=== PATIENT | female | born 1970 | race Caucasian/White ===

== ENCOUNTER 2021-07-04 22:53 | Emergency (ER) | payer MEDICARE, MEDICAID ==
[2021-07-05] MEDS ORDERED: diphenhydrAMINE 50 MG/ML SDV IVPUSH ONE (00:29)
[2021-07-05] MEDS ORDERED: Ketorolac 15 MG/ML SDV IVPUSH ONE (00:29)
[2021-07-05] MEDS ORDERED: Prochlorperazine 10 MG/2 ML SDV IVPUSH ONE (00:29)
[2021-07-05] MEDS ORDERED: Lactated Ringers 1,000 ML IV ONE (03:30)
[2021-07-05 03:55] LABS: ACETAMINOPHEN <2.0 ug/mL; BLOOD UREA NITROGEN,BUN 13 mg/dL (7.0-18.0); CARBON DIOXIDE,CO2 25.2 mmol/L (21.0-32.0); CHLORIDE,CL 106 mmol/L (98-107); GLUCOSE RANDOM 99 mg/dL (74-106); POTASSIUM,K 3.7 mmol/L (3.5-5.1); SODIUM,NA 142 mmol/L (136-145)
--- NOTE | 2021-07-05 04:59 | EDM.PDOC ---
ED HPI GENERAL MEDICAL PROBLEM - General Chief Complaint: General Stated Complaint: HEADACHE, NAUSEA, DIZZINESS Time Seen by Provider: 07/04/21 23:10 - History of Present Illness INITIAL COMMENTS - FREE TEXT/NARRATIVE: CHIEF COMPLAINT(S): Headache HISTORY OF PRESENT ILLNESS: This is a 36-year-old woman without any significant past medical history who comes to the emergency department with a chief complaint of headache. The patient states that she is currently in a hotel where they are doing renovations. She states that she is experiencing a headache, dizziness and some nausea because of the fumes and feels like she is smelling something different. She denies any blurry vision, diplopia, numbness, tingling, weakness. She denies any vomiting. She denies any trouble walking speaking or swallowing. She states that she does not know if anybody else is having similar symptoms. She asks if a person is sitting next to her and smoking drugs if she could be exposed. She denies any illicit substance use. She states that she does have a history of migraines and this does appear to feel similar. REVIEW OF SYSTEMS: Constitutional: Positive for dizziness. Denies fever, chills. Eyes: Denies eye pain Ears, Nose, Mouth, & Throat: Denies earache Cardiovascular: Denies chest pain Respiratory: Denies shortness of breath Gastrointestinal: Denies Nausea, vomiting, diarrhea, hematochezia. Genitourinary: Denies hematuria Skin:Denies a rash MSK: Denies joint pain Neurological: Positive for headache. Denies blurred vision, numbness, tingling, weakness Psychiatric: Denies depression PAST MEDICAL HISTORY: As per history of present illness and as reviewed below otherwise noncontributory. SURGICAL HISTORY: As per history of present illness and as reviewed below otherwise noncontributory. SOCIAL HISTORY: As per history of present illness and as reviewed below otherwise noncontributory. FAMILY HISTORY: As per history of present illness and as reviewed below otherwise noncontributory. EXAMINATION OF ORGAN SYSTEMS/BODY AREAS: Constitutional: Blood pressure is 128/90, heart rate 75, respiratory rate 18 with an oxygen saturation 96% on room air. Temperature 36.8 General: Middle-aged woman who does not appear to be in acute distress Psychiatric: Appropriate mood and affect. Eyes: No scleral icterus or conjunctival erythema ENMT: Moist mucous membranes. No pharyngeal erythema Cardiovascular: Regular, rate, and rhythm. No gallops, murmurs, or rubs. Bilateral upper extremity pulses symmetric and intact. No peripheral edema. No JVD. Respiratory: Lungs clear to auscultation bilaterally. No wheezes, rales, or rhonchi. Gastrointestinal: Soft, non-tender, non-distended. Normoactive bowel sounds Genitourinary: No suprapubic tenderness Musculoskeletal: Normal range of motion. Skin: No lesions or abrasions. Neurological: Alert, GCS 15 strength and sensation grossly intact in upper and lower extremities bilaterally MEDICAL DECISION MAKING AND COURSE IN THE ED WITH INTERPRETATION/REVIEW OF DIAGNOSTIC STUDIES: This is a 50-year-old woman with a past medical history of migraine headache who comes to the emergency department with migraine headache, dizziness and nausea. At this time given that she is concerned about exposure will obtain a carboxyhemoglobin to evaluate for carbon monoxide poisoning. The patient does smoke tobacco therefore I do suspect that it would likely be elev ated however if it is elevated significantly we may have our answer. At this time we will treat the patient's migraine headache with typical migraine cocktail and reevaluate. I currently do not believe any labs or imaging are indicated. DDx: Migraine headache, carbon monoxide poisoning Laboratory: Carboxyhemoglobin is 11.5. Covid is negative. On reevaluation the patient appeared to be drowsy and reported no pain at all. Given the drowsiness we did obtain screening labs. We will let the patient sleep here in the emergency department and reevaluate. On reevaluation patient reported significant improvement in her pain. At this time I did discuss symptomatic treatment at home. Encouraged her to speak to her landlord/hotel passenger car conductor about the exposures at her hotel. I did encourage the patient to stop smoking. She was given strict return precautions. She was amenable to discharge and had no further questions DISPOSITION: The patient was discharged home in stable condition. The patient will follow up with primary care physician in 3 to 5 days CONDITION: Fair PROCEDURES: None FINAL IMPRESSION(S)/DIAGNOSES: 1. Acute migraine headache Erick Lutz M.D. headache Pain Score (Numeric/FACES): 5 - Related Data Allergies Allergy/AdvReac Type Severity Reaction Status Date / Time morphine Allergy Other Verified 07/04/21 23:09 nitrofurantoin Allergy Other Verified 07/04/21 23:09 [From Macrobid] Penicillins Allergy Other Verified 07/04/21 23:09 Home Meds: Home Meds Celecoxib [CeleBREX] 100 mg PO BID 07/04/21 [History] Esomeprazole [NexIUM] 20 mg PO DAILY 07/04/21 [History] Past Medical History HEENT History: Reports: None Cardiovascular History: Reports: High Cholesterol Respiratory History: Reports: None Gastrointestinal History: Reports: None Genitourinary History: Reports: None SWINE EXTENSION FIELD SPECIALIST History: Reports: None Musculoskeletal History: Reports: None Neurological History: Reports: None Psychiatric History: Reports: ADHD, Anxiety, Depression Endocrine/Metabolic History: Reports: None Insulin Pump Model and Mens Locker Room Attendant: N/A Hematologic History: Reports: None Immunologic History: Reports: None Oncologic (Cancer) History: Reports: None Dermatologic History: Reports: None - Infectious Disease History Infectious Disease History: Reports: None - Past Surgical History Head Surgeries/Procedures: Reports: None Social & Family History - Caffeine Use Caffeine Use: Reports: Coffee - Recreational Drug Use Recreational Drug Use: No ED ROS GENERAL - Review of Systems Review Of Systems: See Below ED EXAM, GENERAL - Physical Exam Exam: See Below Course - Vital Signs Last Recorded V/S: Last Vital Signs Temp 36.5 C 07/04/21 23:49 Pulse 56 L 07/05/21 06:34 Resp 16 07/05/21 06:34 BP 97/55 L 07/05/21 06:34 Pulse Ox 96 07/05/21 06:34 - Orders/Labs/Meds Labs: Laboratory Tests 07/04/21 07/04/21 07/05/21 Range/Units 23:30 23:50 00:45 WBC 7.48 (4.0-11.0) K/uL RBC 4.58 (4.30-5.90) M/uL Hgb 15.2 (12.0-16.0) g/dL Hct 43.4 (36.0-46.0) % MCV 94.8 (80.0-98.0) fL MCH 33.2 H (27.0-32.0) pg MCHC 35.0 (31.0-37.0) g/dL RDW Std Deviation 44.9 (28.0-62.0) fl RDW Coeff of Fahad 13 (11.0-15.0) % Plt Count 287 (150-400) K/uL MPV 10.80 (7.40-12.00) fL Neut % (Auto) 52.9 (48.0-80.0) % Lymph % (Auto) 36.0 (16.0-40.0) % [place] % (Auto) 8.0 (0.0-15.0) % Eos % (Auto) 2.8 (0.0-7.0) % Baso % (Auto) 0.3 (0.0-1.5) % Neut # (Auto) 4.0 (1.4-5.7) K/uL Lymph # (Auto) 2.7 H (0.6-2.4) K/uL [place] # (Auto) 0.6 (0.0-0.8) K/uL Eos # (Auto) 0.2 (0.0-0.7) K/uL Baso # (Auto) 0.0 (0.0-0.1) K/uL Nucleated RBC % 0.0 /100WBC Nucleated RBCs # 0 K/uL ABG Carboxyhemoglobin 11.5 (0-15) % Sodium (136-145) mmol/L Potassium (3.5-5.1) mmol/L Chloride (98-107) mmol/L Carbon Dioxide (21.0-32.0) mmol/L BUN (7.0-18.0) mg/dL Creatinine (0.6-1.0) mg/dL Est Cr Clr Drug Dosing Estimated GFR (MDRD) ml/min Glucose (74-106) mg/dL Calcium (8.5-10.1) mg/dL Magnesium (1.8-2.4) mg/dL Total Bilirubin (0.2-1.0) mg/dL AST (15-37) IU/L ALT (14-63) IU/L Alkaline Phosphatase (46-116) U/L Total Protein (6.4-8.2) g/dL Albumin (3.4-5.0) g/dL Globulin (2.6-4.0) g/dL Albumin/Globulin Ratio (0.9-1.6) TSH, Ultra Sensitive (0.36-3.74) uIU/mL Salicylates (0-20) mg/dL Acetaminophen ug/mL Ethyl Alcohol mg/dL SARS-CoV-2 RNA (TOM) NEGATIVE (NEGATIVE) 07/05/21 Range/Units 00:45 WBC (4.0-11.0) K/uL RBC (4.30-5.90) M/uL Hgb (12.0-16.0) g/dL Hct (36.0-46.0) % MCV (80.0-98.0) fL MCH (27.0-32.0) pg MCHC (31.0-37.0) g/dL RDW Std Deviation (28.0-62.0) fl RDW Coeff of Fahad (11.0-15.0) % Plt Count (150-400) K/uL MPV (7.40-12.00) fL Neut % (Auto) (48.0-80.0) % Lymph % (Auto) (16.0-40.0) % [place] % (Auto) (0.0-15.0) % Eos % (Auto) (0.0-7.0) % Baso % (Auto) (0.0-1.5) % Neut # (Auto) (1.4-5.7) K/uL Lymph # (Auto) (0.6-2.4) K/uL [place] # (Auto) (0.0-0.8) K/uL Eos # (Auto) (0.0-0.7) K/uL Baso # (Auto) (0.0-0.1) K/uL Nucleated RBC % /100WBC Nucleated RBCs # K/uL ABG Carboxyhemoglobin (0-15) % Sodium 142 (136-145) mmol/L Potassium 3.7 (3.5-5.1) mmol/L Chloride 106 (98-107) mmol/L Carbon Dioxide 25.2 (21.0-32.0) mmol/L BUN 13 (7.0-18.0) mg/dL Creatinine 0.8 (0.6-1.0) mg/dL Est Cr Clr Drug Dosing TNP Estimated GFR (MDRD) > 60.0 ml/min Glucose 99 (74-106) mg/dL Calcium 8.7 (8.5-10.1) mg/dL Magnesium 2.1 (1.8-2.4) mg/dL Total Bilirubin 0.4 (0.2-1.0) mg/dL AST 14 L (15-37) IU/L ALT 27 (14-63) IU/L Alkaline Phosphatase 109 (46-116) U/L Total Protein 7.8 (6.4-8.2) g/dL Albumin 3.8 (3.4-5.0) g/dL Globulin 4.0 (2.6-4.0) g/dL Albumin/Globulin Ratio 0.9 (0.9-1.6) TSH, Ultra Sensitive 3.07 (0.36-3.74) uIU/mL Salicylates 4.9 (0-20) mg/dL Acetaminophen <2.0 ug/mL Ethyl Alcohol < 3.0 mg/dL SARS-CoV-2 RNA (TOM) (NEGATIVE) Meds: Medications Discontinued Medications Generic Name Dose Route Start Last Admin Trade Name Freq PRN Reason Stop Dose Admin Diphenhydramine HCl 50 mg 07/05/21 00:29 07/05/21 00:48 Diphenhydramine 50 Mg/Ml Sdv IVPUSH 07/05/21 00:30 50 mg ONETIME ONE Administration Lactated Ringer's 1,000 mls @ 999 mls/hr 07/05/21 03:30 07/05/21 03:30 Ringers, Lactated IV 07/05/21 04:30 999 mls/hr .BOLUS ONE Administration Ketorolac Tromethamine 15 mg 07/05/21 00:29 07/05/21 00:48 Ketorolac 15 Mg/Ml Sdv IVPUSH 07/05/21 00:30 15 mg ONETIME ONE Administration Prochlorperazine Edisylate 5 mg 07/05/21 00:29 07/05/21 00:51 Prochlorperazine 10 Mg/2 Ml Sdv IVPUSH 07/05/21 00:30 5 mg ONETIME ONE Administration Departure - Departure Time of Disposition: 06:00 Disposition: Home, Self-Care 01 Condition: Fair Clinical Impression: Migraine - Discharge Information *PRESCRIPTION DRUG MONITORING PROGRAM REVIEWED*: No *COPY OF PRESCRIPTION DRUG MONITORING REPORT IN PATIENT BRIDGER: No Instructions: Migraine Headache Referrals: Francesca Carrero [facility] [Primary Care Provider] - Forms: ED Department Discharge Additional Instructions: You were evaluated today on an emergent basis. At this time we did treat you symptomatically. You did report improvement in your symptoms. At this time I do recommend that you discuss with your landlord/business passenger car conductor of the hotel about your concerns. I discussed that I recommend Tylenol and Motrin for pain relief and to continue with hydration. If you have any worsening symptoms I recommend you return to the emergency department otherwise follow-up with your primary care physician in 3 to 5 days. [facility] - [facility] [address] [place] [id number] [facility] [address] [place] [id number] The patient is informed of any results of their evaluation and diagnostic workup and all questions are answered. They are given discharge instructions and return precautions. The patient is stable for discharge. The patient states they understand and agree with the plan and that they will return if their symptoms get worse or if they have any new concerns. The following information is given to patients seen in the emergency department who are being discharged to home. This information is to outline your options for follow-up care. We provide all patients seen in our emergency department with a follow-up referral. The need for follow-up, as well as the timing and circumstances, are variable depending upon the specifics of your emergency department visit. If you don't have a primary care physician on staff, we will provide you with a referral. We always advise you to contact your personal physician following an emergency department visit to inform them of the circumstance of the visit and for follow-up with them and/or the need for any referrals to a consulting specialist. The emergency department will also refer you to a specialist when appropriate. This referral assures that you have the opportunity for follow-up care with a specialist. All of these measure are taken in an effort to provide you with optimal care, which includes your follow-up. Under all circumstances we always encourage you to contact your private physician who remains a resource for coordinating your care. When calling for follow-up care, please make the office aware that this follow-up is from your recent emergency room visit. If for any reason you are refused follow-up, please contact the [facility] Emergency Department at and asked to speak to the emergency department charge nurse. Sepsis Event Note (ED) - Evaluation Sepsis Screening Result: No Definite Risk
== END 2021-07-05 06:36 | disposition home or self-care (01) ==
LOC: MW.ED 22:53
DX: G43.909 Migraine, unspecified, not intractable, without status migrainosus (principal); Z88.5 Allergy status to narcotic agent; Z88.1 Allergy status to other antibiotic agents; Z88.0 Allergy status to penicillin; Z20.822 Contact with and (suspected) exposure to COVID-19
CPT/HCPCS: 36415; 80053; 80143; 80179; 80307; 82375; 83735; 84443; 85025; 96374; 96375; 99284; J0780; J1200; J1885; J7120; U0002